=== PATIENT | female | born 1970 | race Caucasian/White ===

== ENCOUNTER 2020-06-13 13:17 | Emergency (ER) | payer OTHER, SELFPAY ==
[2020-06-13 13:20] VITALS: BP 141/94; PULSE 104; RESP 17; TEMP 36.6; O2SAT 99
[2020-06-13 14:13] LABS: Basophils Percent Auto 0.5 % (0.2-1.2); Eosinophils Percent Auto 0.5 % (0-4.4); Hematocrit 43.5 % (37.0-47.0); Hemoglobin 14.7 g/dL (12.0-15.0); Immature Granulocyte Absolute 0.01 K/mm3 (0.00-0.031); Immature Granulocyte Percent A 0.2 % (0-0.5); Lymphocytes Absolute Auto 2.31 K/mm3 (0.9-3.2); Lymphocytes Percent Auto 36.4 % (18.3-44.2); Mean Corpuscular HGB Conc 33.8 g/dl (32-36); Mean Corpuscular Hemoglobin 30.7 pg (26-34); Mean Corpuscular Volume 90.8 fl (80-100); Monocytes Absolute Auto 0.3 K/mm3 (0.1-0.6); Monocytes Percent Auto 5.2 % (2.6-8.5); Neutrophils Absolute Auto 3.6 K/mm3 (1.3-6.7); Neutrophils Percent Auto 57.2 % (45.5-73.1); Platelet Count Result 287 k/mm3 (150-375); Red Blood Count 4.79 M/mm3 (4.2-5.4); Red Cell Distribution Width 13.1 % (11.5-14.5); White Blood Count 6.3 K/mm3 (4.5-10.0)
[2020-06-13 14:15] LABS: Add Urine Microscopic? NO; Appearance Urine Clear (Clear); Bilirubin Urine Negative (Negative); Blood Urine Negative (Negative); Color Urine Straw (Yellow); Glucose Urine UA Negative (Negative); Ketones Urine Negative (Negative); Leukocyte Esterase Ur Negative LEU/UL (Negative); Nitrate Urine Negative (Negative); Protein Urine Negative (Negative); Specific Grav Ur 1.006 (1.001-1.035); Urobilinogen Urine Negative mg/dL (<2.0)
[2020-06-13 14:31] LABS: Anion Gap 6 mmol/L (8-16); Blood Urea Nitrogen 11 mg/dL (7-17); Calcium 10.1 mg/dL (8.4-10.2); Carbon Dioxide 28 mmol/L (22-30); Chloride 107 mmol/L (98-107); Estimated CRCL calculation 98 ml/min; Estimated Glomerular Filt Rate > 60; Glucose 96 mg/dL (65-105); Potassium 3.6 mmol/L (3.4-5.0); Sodium 141 mmol/L (137-145)
--- NOTE | 2020-06-13 14:32 | ED.BACK ---
HPI - Back Pain/Injury General Chief Complaint: Back Pain/Injury Stated Complaint: Left sided hip and back pain for awhile now Time Seen by Provider: 06/13/20 13:40 History of Present Illness HPI Narrative: Patient is a 50-year-old female who comes into the ED today complaining of pain in her left hip radiating down to her left knee. Pain has been present for about 3 months now. It is made worse by prolonged standing and ambulating which is required at her job. Denies any mechanism of injury. No numbness or tingling. Admits to feelings of incomplete voiding otherwise denies any urinary symptoms. Knows that when the pain is really bothering her she feels nauseous. Otherwise denies any fevers or saddle paresthesia or any other bowel or bladder symptoms. Was seen by her PCP for this who gave her a shot in her left hip which has not helped. She has been taking [id number] ibuprofen. Denies any possibility of . Related Data Allergies Allergy/AdvReac Type Severity Reaction Status Date / Time No Known Allergies Allergy Unverified 07/05/18 18:41 Review of Systems Review of Systems: All systems reviewed & are unremarkable except as noted in HPI and below PMFSH Social History Social History Gender identity (if verbalized by the patient): Female Exam Const: General: no acute distress Other: Pleasant, cooperative, no distress HENMT: Head: normal to inspection Eyes: Conjunctivae: conjunctivae normal Pupils: Equal, round and reactive pupils present Neck: Neck: normal visual inspection Chest: Chest palpation & inspection: normal inspection of the chest Resp: Effort & Inspection: normal respiratory effort Auscultation: clear to auscultation bilaterally Cardio: Rate: regular rate Rhythm: regular rhythm GI: Inspection: non-distended GI Palp: Yes Soft to palpation, No Tenderness to palpation present (GI) and No Guarding due to palpation present (GI) : General: Yes no CVA tenderness Back/Spine/Pelvis: Back: no CVA tenderness Other: No lumbar tenderness to palpation. Neurovascular tact throughout. Negative straight leg raise test bilaterally. Skin: General skin exam: normal color Rashes: no rashes Neuro: General: patient oriented x3 and moves all extremities Extrem: Other: Tender to palpate over lateral aspect of left hip and lateral aspect left thigh down to the knee. Tender to palpate posterior left buttocks. Full range of motion left lower extremity in all planes. Normal gait. 5/5 strength throughout. Psych: Affect: normal affect Attitude: cooperative Course Course Emergency Course: Discussed with patient that clinically symptoms are consistent with IT band friction syndrome. Less likely piriformis syndrome. Educated on stretching and range of motion exercises. I had the patient demonstrate clamshell exercises to strengthen her piriformis and recommended that she do this morning and evening on both sides. Educated on conservative management and to follow-up with her primary care physician in case she needs physical therapy or further care. Vital Signs Vital signs: Vital Signs Temperature 36.6 C 06/13/20 13:20 Pulse Rate 104 H 06/13/20 13:20 Respiratory Rate 17 06/13/20 13:20 Blood Pressure 141/94 H 06/13/20 13:20 Pulse Oximetry 99 06/13/20 13:20 Temperature 36.6 C 06/13/20 13:20 Pulse Rate 104 H 06/13/20 13:20 Respiratory Rate 17 06/13/20 13:20 Blood Pressure 141/94 H 06/13/20 13:20 Pulse Oximetry 99 06/13/20 13:20 MDM - Back Pain/Injury Lab Data Result diagrams: 06/13/20 14:01 06/13/20 14:01 Labs: Lab Results 06/13/20 06/13/20 06/13/20 Range/Units 14:01 14:01 14:01 WBC 6.3 (4.5-10.0) K/mm3 RBC 4.79 (4.2-5.4) M/mm3 Hgb 14.7 (12.0-15.0) g/dL Hct 43.5 (37.0-47.0) % MCV 90.8 (80-100) fl MCH 30.7 (26-34) pg MCHC 33.8 (32-36) g/dl RDW 13.1 (11.5-14.5) % Plt Count 287
[2020-06-13] MEDS: KETOROLAC 30 MG/ML VIAL (*BKC) IM (15:01)
[2020-06-13 15:09] VITALS: BP 143/87; PULSE 103; RESP 18; O2SAT 99
== END 2020-06-13 15:09 | disposition home or self-care (01) ==
PROVIDERS: General Practice; Emergency Provider Emergency Medicine; PCP Family Medicine
DX: M76.32 Iliotibial band syndrome, left leg (principal); G57.02 Lesion of sciatic nerve, left lower limb
CPT/HCPCS: 36415; 80048; 81003; 81025; 85025; 96372; 99283; J1885

== ENCOUNTER 2020-06-18 11:16 | Emergency (ER) | payer OTHER, SELFPAY ==
[2020-06-18 11:27] VITALS: BP 137/82; PULSE 105; RESP 18; TEMP 36.7; O2SAT 100
--- NOTE | 2020-06-18 11:36 | PC.NURSE ---
Patient's daughter vik ko called at this time [phone] per patient request
[2020-06-18] MEDS: hydrOXYzine HCL 25 MG TABLET 50 MG PO (11:57)
--- NOTE | 2020-06-18 12:48 | ED.GENADULT ---
HPI - General Adult General Chief complaint: Unspecified Stated complaint: EMOTIONAL CRISIS Time Seen by Provider: 06/18/20 11:26 History of Present Illness HPI narrative: Patient a 50-year-old female who presents the emergency department with chief complaint of panic attack. Patient reports that she was at work she has been under a lot of stress lately and started feeling as though the world is caving in on her. Patient denies suicidal or homicidal ideation denies chest pain denies shortness of breath Related Data Allergies Allergy/AdvReac Type Severity Reaction Status Date / Time No Known Allergies Allergy Verified 06/18/20 11:34 Review of Systems Review of Systems: Narrative: A 10 system review of systems was completed on the patient and is negative except for what is stated in the HPI. Nursing and ancillary documentation was reviewed. PMFSH Social History Social History Gender identity (if verbalized by the patient): Female Comments Past medical history significant for depression Social history the patient denies illicit drug use Exam Narrative: Exam Narrative: GENERAL: Well-appearing, well-nourished, and in no acute distress. HEAD: Normocephalic, atraumatic. EYES: PERRLA and EOMI. ENT: Nares clear, no rhinorrhea or epistaxis. Mucous membranes moist. NECK: Supple. CHEST: Clear to auscultation. No respiratory distress. HEART: Regular rate and rhythm. No murmur heard. Normal peripheral pulses. ABDOMEN: Soft, nontender, nondistended, normal active bowel sounds. EXTREMITIES: Normal range of motion. No edema. SKIN: Warm, dry, no rash. NEURO: No focal deficits. Alert and oriented x3. PSYCH: Normal mood and affect. Course Course Emergency Course: Patient received a dose of hydroxyzine in the emergency department and is feeling much better at this time Vital Signs Vital signs: Vital Signs Temperature 36.7 C 06/18/20 11:27 Pulse Rate 105 H 06/18/20 11:27 Respiratory Rate 18 06/18/20 11:27 Blood Pressure 137/82 06/18/20 11:27 Pulse Oximetry 100 06/18/20 11:27 Temperature 36.7 C 06/18/20 11:27 Pulse Rate 105 H 06/18/20 11:27 Respiratory Rate 18 06/18/20 11:27 Blood Pressure 137/82 06/18/20 11:27 Pulse Oximetry 100 06/18/20 11:27 Medical Decision Making Vital Signs Vital Signs: Vital Signs Temperature 36.7 C 06/18/20 11:27 Pulse Rate 105 H 06/18/20 11:27 Respiratory Rate 18 06/18/20 11:27 Blood Pressure 137/82 06/18/20 11:27 Pulse Oximetry 100 06/18/20 11:27 Temperature 36.7 C 06/18/20 11:27 Pulse Rate 105 H 06/18/20 11:27 Respiratory Rate 18 06/18/20 11:27 Blood Pressure 137/82 06/18/20 11:27 Pulse Oximetry 100 06/18/20 11:27 Discharge Plan Discharge Clinical Impression: Panic attack Patient Disposition: Home, Self-Care Condition: Stable Instructions: Antibiotic Form, Anxiety (ED), Panic Attack (ED) Prescriptions: New hydroxyzine HCl 50 mg tablet 50 mg PO TID PRN (Reason: anxiety) Qty: 30 RF: 0 No Action naproxen 500 mg tablet 500 mg PO BID PRN (Reason: pain) Qty: 30 RF: 0 Follow-up/Referrals: Ridge,Tunde Lemons MD [Primary Care Provider] - Time of Disposition: 12:52
== END 2020-06-18 13:03 | disposition home or self-care (01) ==
PROVIDERS: Emergency Provider Emergency Medicine; PCP Family Medicine
DX: F41.0 Panic disorder [episodic paroxysmal anxiety] (principal)
CPT/HCPCS: 99283; A9270